=== PATIENT | female | born 1950 | race American Indian/Alaskan Native ===

== ENCOUNTER 2023-08-17 04:05 | Inpatient (IN) | payer MEDICARE, MEDICAID ==
[2023-08-17] VITALS (9 sets, daily range): BP systolic 146–197; BP diastolic 53–78; PULSE 75–104; RESP 16–26; TEMP 97.8–98.1; O2SAT 0–99
[~2023-08-17] VITALS: Ht 165.1 cm; Wt 61.2 kg
[2023-08-17] MEDS: ACCU-CHEK COMFORT CURVE STRIP VI ONE (04:27)
[2023-08-17] MEDS: DEXTROSE (50%) 50ML SYRG IV ONE (04:28)
[2023-08-17] MEDS: DEXTROSE 50% SYRINGE 50 ML IV ONE (04:28)
[2023-08-17] MEDS: DEXTROSE 10% 1,000 ML IV ONE (04:36)
[2023-08-17 05:09] LABS: Eosinophils # (auto) 0 10 ^3/uL (0-0.8); Lymphocytes # (auto) 1.2 10 ^3/uL (0.4-5.4)
[2023-08-17 05:12] LABS: Basophils # (auto) 0.1 10 ^3/uL (0-0.2); Basophils % (auto) 0.8 % (0.0-2.0); Eosinophils % (auto) 0.6 % (0.0-7.0); Hemoglobin 8.1 g/dL (12.2-16.2); Lymphocytes % (auto) 15.7 % (10.0-50.0); Mean Corpuscular Hemoglobin 28.6 pg (28.0-32.0); Mean Corpuscular Hgb Conc. 32.4 g/dL (32.0-36.0); Mean Corpuscular Volume 88.3 fL (80.0-100.0); Monocytes # (auto) 0.7 10 ^3/uL (0-1.3); Monocytes % (auto) 8.5 % (0.0-12.0); Neutrophils # (auto) 5.8 10 ^3/uL (1.6-8.6); Neutrophils % (auto) 74.4 % (37.0-80.0); Red Blood Cells 2.83 10^6/uL (4.0-5.20); Red Cell Distribution Width 14.8 % (11.8-14.3); White Blood Cell 7.7 10^3/uL (4.4-10.8)
[2023-08-17 05:24] LABS: Alanine Aminotransferase 27 U/L (7-40); Albumin 3.4 g/dL (3.2-4.8); Alkaline Phosphatase 98 U/L (46-116); Anion Gap 10 (5-15); Aspartate Aminotransferase 32 U/L (13-40); BUN/Creatinine Ratio 11.9 (10.0-20.0); Bilirubin, Total 0.2 mg/dL (0.2-1.0); Blood Urea Nitrogen 23 mg/dL (9-23); Calcium 8.4 mg/dL (8.5-10.1); Carbon Dioxide 19 mmol/L (20-30); Chloride 110 mmol/L (98-107); Glucose 115 mg/dL (74-106); Potassium 4.6 mmol/L (3.5-5.1); Sodium 139 mmol/L (136-145); Total Protein 5.4 g/dL (5.7-8.2)
[2023-08-17 05:27] LABS: Lactic Acid w/Reflex 2.9 mmol/L (0.4-2.0)
[2023-08-17] MEDS: LABETALOL HCL 5 MG/ML 4ML SYRINGE IV ONE (05:32)
[2023-08-17] MEDS: cloNIDine HCL 0.1 MG TAB PO ONE (09:13)
[2023-08-17] MEDS: CARVEDILOL 3.125 MG TAB PO ONE (09:28)
[2023-08-17] MEDS: FUROSEMIDE 20 MG TAB PO ONE (09:29)
[2023-08-17] MEDS ORDERED: DEXTROSE (50%) 50ML SYRG IV PRN (09:45)
[2023-08-17] MEDS ORDERED: DOCUSATE SOD 100 MG CAP PO PRN (09:45)
[2023-08-17] MEDS ORDERED: MORPHINE SULFATE INJ 2 MG/ml SYRG IV PRN (09:45)
[2023-08-17] MEDS ORDERED: ONDANSETRON HCL 4 MG/2 ML VIAL IV PRN (09:45)
[2023-08-17] MEDS: ACCU-CHEK COMFORT CURVE STRIP VI SCH (12:08)
[2023-08-17] MEDS: hydrALAZINE HCL 20 MG/ML VL IV PRN (12:29)
[2023-08-17 16:43] LABS: Urine Bacteria FEW /hpf (None Seen); Urine Blood Negative /uL (Negative); Urine Clarity Clear (Clear); Urine Color Colorless (Yellow); Urine Mucus FEW (None Seen); Urine Protein, UAD 3+ (Negative); Urine Urobilinogen Normal (Negative); Urine WBC 2 /hpf (0 - 5)
[2023-08-17 16:58] LABS: Creatinine, Urine 55.35 mg/dL (30.0-125.0)
[2023-08-17] MEDS ORDERED: LEVO100T8 PO (18:11)
[2023-08-17] MEDS ORDERED: NIFE1TAB31 PO (18:11)
[2023-08-17] MEDS ORDERED: OMEP1CAP70 PO (18:11)
[2023-08-17] MEDS ORDERED: FUR20T PO (18:11)
[2023-08-17] MEDS ORDERED: GLIP10TA9 (18:11)
[2023-08-17] MEDS ORDERED: CARV3.1240 PO (18:11)
[2023-08-17] MEDS ORDERED: SIMV20TA20 PO (18:11)
[2023-08-17] MEDS ORDERED: MELO15TA29 PO (18:11)
[2023-08-17] MEDS ORDERED: DOCU-265 PO (18:11)
[2023-08-17] MEDS ORDERED: ALBU0.084 NEB (20:08)
[2023-08-17] MEDS: ALBUTEROL SULF 2.5 MG/0.5ML(0.5%) NEB SOLN NEB PRN (23:14)
[2023-08-18] VITALS (14 sets, daily range): BP systolic 121–182; BP diastolic 61–85; PULSE 72–98; RESP 16–22; TEMP 97.5–98.8; O2SAT 95–100
[2023-08-18 05:28] LABS: Basophils # (auto) 0.1 10 ^3/uL (0-0.2); Basophils % (auto) 1.3 % (0.0-2.0); Eosinophils # (auto) 0.1 10 ^3/uL (0-0.8); Hemoglobin 7.7 g/dL (12.2-16.2); Lymphocytes # (auto) 1.9 10 ^3/uL (0.4-5.4); Monocytes # (auto) 0.7 10 ^3/uL (0-1.3)
[2023-08-18 05:31] LABS: Eosinophils % (auto) 1.7 % (0.0-7.0); Hematocrit 23.5 % (36.0-46.0); Lymphocytes % (auto) 28.7 % (10.0-50.0); Mean Corpuscular Hemoglobin 28.6 pg (28.0-32.0); Mean Corpuscular Hgb Conc. 32.9 g/dL (32.0-36.0); Monocytes % (auto) 10.4 % (0.0-12.0); Neutrophils # (auto) 3.9 10 ^3/uL (1.6-8.6); Neutrophils % (auto) 57.9 % (37.0-80.0); Nucleated Red Blood Cells % 0.1 %; Red Cell Distribution Width 14.8 % (11.8-14.3); White Blood Cell 6.7 10^3/uL (4.4-10.8)
[2023-08-18 05:50] LABS: Alanine Aminotransferase 19 U/L (7-40); Alkaline Phosphatase 81 U/L (46-116); Anion Gap 3 (5-15); Aspartate Aminotransferase 23 U/L (13-40); BUN/Creatinine Ratio 11.8 (10.0-20.0); Blood Urea Nitrogen 21 mg/dL (9-23); Calcium 8.2 mg/dL (8.7-10.4); Carbon Dioxide 24 mmol/L (20-30); Chloride 109 mmol/L (98-107); Glucose 148 mg/dL (74-106); Potassium 4.8 mmol/L (3.5-5.1); Sodium 136 mmol/L (136-145)
[2023-08-18 05:51] LABS: Bilirubin, Total 0.2 mg/dL (0.2-1.0); Total Protein 5.2 g/dL (5.7-8.2)
[2023-08-18] MEDS: ENOXAPARIN SOD 30 MG/0.3 ML SYRINGE SC SCH (08:27)
[2023-08-18 09:28] LABS: Triglycerides 111 mg/dL (< 150)
[2023-08-18 09:29] LABS: LDL Cholesterol 40 mg/dL (< 100)
[2023-08-18 09:30] LABS: Cholesterol 96 mg/dL (< 200); HDL Cholesterol 38 mg/dL (40-59)
[2023-08-18] MEDS: NIFEdipine ER 30 MG TAB PO SCH (10:15)
[2023-08-18] MEDS: FUROSEMIDE 20 MG TAB PO SCH (10:15)
[2023-08-18] MEDS: LEVOTHYROXINE SODIUM 100 MCG TAB PO SCH (10:16)
[2023-08-18] MEDS: CARVEDILOL 3.125 MG TAB PO SCH (10:16)
[2023-08-18] MEDS ORDERED: METF-370 PO (13:26)
[2023-08-18] MEDS ORDERED: LISI-706 PO (14:08)
[2023-08-18 14:26] LABS: % Iron Saturation 6.7 % (15-50)
[2023-08-18] MEDS: ERGOCALCIFEROL 50,000 UNIT(1.25MG) CAP PO SCH (16:38)
[2023-08-18] MEDS: hydroCHLOROthiazide 25 MG TAB PO ONE (16:45)
[2023-08-18] MEDS: FERROUS SULFATE 325mg EC TAB PO SCH (18:13)
[2023-08-18 22:10] LABS: Urine Bacteria NONE SEEN /hpf (None Seen); Urine Blood Negative /uL (Negative); Urine Clarity Clear (Clear); Urine Color Colorless (Yellow); Urine Protein, UAD 3+ (Negative); Urine Specific Gravity 1.008 (1.001-1.035); Urine Urobilinogen Normal (Negative); Urine WBC <1 /hpf (0 - 5)
[2023-08-18 22:22] LABS: Creatinine, Urine 39.41 mg/dL (30.0-125.0)
[2023-08-18 22:24] LABS: Protein, Urine 330.8 mg/dL (0.0-11.9)
[2023-08-19] VITALS (11 sets, daily range): BP systolic 135–159; BP diastolic 56–70; PULSE 79–96; RESP 16–20; TEMP 98–98.2; O2SAT 95–99
[2023-08-19] MEDS: CYANOCOBALAMIN 500 MCG TAB PO SCH (08:53)
[2023-08-19] MEDS: hydroCHLOROthiazide 25 MG TAB PO SCH (08:55)
[2023-08-19] MEDS: LISINOPRIL 20 MG TAB PO SCH (08:55)
[2023-08-19 15:35] LABS: INR 1.05 (0.9-1.15)
[2023-08-19 15:41] LABS: Free T3 2.66 pg/mL (2.3-4.2)
[2023-08-19 15:42] LABS: Free T4 (Free Thyroxine) 1.27 ng/dL (0.89-1.76)
[2023-08-19 16:38] LABS: Rapid Influenza A Negative (Negative); Rapid Influenza B Negative (Negative)
[2023-08-19 16:40] LABS: COVID19 ANTIGEN SOFIA FIA POSITIVE (NEGATIVE)
[2023-08-20] VITALS (11 sets, daily range): BP systolic 141–175; BP diastolic 54–64; PULSE 74–97; RESP 16–18; TEMP 97.8–99.1; O2SAT 95–99
[2023-08-20 05:47] LABS: Basophils # (auto) 0 10 ^3/uL (0-0.2); Basophils % (auto) 0.7 % (0.0-2.0); Eosinophils # (auto) 0.1 10 ^3/uL (0-0.8); Hemoglobin 7.6 g/dL (12.2-16.2); Monocytes # (auto) 0.5 10 ^3/uL (0-1.3); Neutrophils # (auto) 2.7 10 ^3/uL (1.6-8.6); Red Cell Distribution Width 14.6 % (11.8-14.3); White Blood Cell 5.7 10^3/uL (4.4-10.8)
[2023-08-20 05:49] LABS: Eosinophils % (auto) 1.4 % (0.0-7.0); Hematocrit 23.4 % (36.0-46.0); Lymphocytes # (auto) 2.3 10 ^3/uL (0.4-5.4); Mean Corpuscular Hemoglobin 28.2 pg (28.0-32.0); Mean Corpuscular Hgb Conc. 32.5 g/dL (32.0-36.0); Mean Corpuscular Volume 86.9 fL (80.0-100.0); Monocytes % (auto) 9.5 % (0.0-12.0); Neutrophils % (auto) 47.4 % (37.0-80.0)
[2023-08-20 06:06] LABS: Alanine Aminotransferase 32 U/L (7-40); Alkaline Phosphatase 97 U/L (46-116); Anion Gap 4 (5-15); Aspartate Aminotransferase 43 U/L (13-40); BUN/Creatinine Ratio 12.1 (10.0-20.0); Blood Urea Nitrogen 21 mg/dL (9-23); Carbon Dioxide 26 mmol/L (20-30); Chloride 109 mmol/L (98-107); Glucose 131 mg/dL (74-106); Potassium 4.6 mmol/L (3.5-5.1); Sodium 139 mmol/L (136-145)
[2023-08-20 06:07] LABS: Bilirubin, Total 0.2 mg/dL (0.2-1.0); Total Protein 5.3 g/dL (5.7-8.2)
[2023-08-20] MEDS: CARVEDILOL 3.125 MG TAB PO SCH (10:00)
[2023-08-20] MEDS: DexAMETHasone SOD PHOS 10MG/1ML VIAL INJ IV SCH (10:00)
[2023-08-20] MEDS ORDERED: DEXTROSE (50%) 50ML SYRG IV PRN (18:15)
[2023-08-20] MEDS: InsuLIN REG 1unit/0.01ml Soln (100units/ml) SC ONE (18:17)
[2023-08-20] MEDS: ACCU-CHEK COMFORT CURVE STRIP VI SCH (22:05)
[2023-08-20] MEDS: InsuLIN REG 1unit/0.01ml Soln (100units/ml) SC SCH (22:06)
[2023-08-21] VITALS (7 sets, daily range): BP systolic 137–168; BP diastolic 50–72; PULSE 80–95; RESP 16–18; TEMP 36.4; O2SAT 95–98
[2023-08-21 06:20] LABS: Basophils # (auto) 0 10 ^3/uL (0-0.2); Eosinophils # (auto) 0 10 ^3/uL (0-0.8); Monocytes # (auto) 0.5 10 ^3/uL (0-1.3); White Blood Cell 5.9 10^3/uL (4.4-10.8)
[2023-08-21 06:23] LABS: Basophils % (auto) 0.2 % (0.0-2.0); Hematocrit 22.4 % (36.0-46.0); Hemoglobin 7.4 g/dL (12.2-16.2); Lymphocytes # (auto) 1.6 10 ^3/uL (0.4-5.4); Lymphocytes % (auto) 26.3 % (10.0-50.0); Mean Corpuscular Hemoglobin 28.1 pg (28.0-32.0); Mean Corpuscular Volume 85.4 fL (80.0-100.0); Monocytes % (auto) 8.6 % (0.0-12.0); Neutrophils # (auto) 3.8 10 ^3/uL (1.6-8.6); Neutrophils % (auto) 64.9 % (37.0-80.0); Red Blood Cells 2.62 10^6/uL (4.0-5.20); Red Cell Distribution Width 14.2 % (11.8-14.3)
[2023-08-21 06:33] LABS: Alanine Aminotransferase 37 U/L (7-40); Alkaline Phosphatase 98 U/L (46-116); Anion Gap 4 (5-15); Aspartate Aminotransferase 33 U/L (13-40); BUN/Creatinine Ratio 12.9 (10.0-20.0); Blood Urea Nitrogen 22 mg/dL (9-23); Calcium 8.5 mg/dL (8.7-10.4); Carbon Dioxide 29 mmol/L (20-30); Chloride 107 mmol/L (98-107); Glucose 70 mg/dL (74-106); Potassium 4.1 mmol/L (3.5-5.1); Sodium 140 mmol/L (136-145)
[2023-08-21 06:34] LABS: Bilirubin, Total 0.2 mg/dL (0.2-1.0); Total Protein 5.4 g/dL (5.7-8.2)
[2023-08-21] MEDS ORDERED: ERGO1CAP23 PO (12:40)
[2023-08-21] MEDS ORDERED: FER325T PO ×2 (12:40→14:32)
[2023-08-21] MEDS ORDERED: AZIT-185 PO (12:40)
== END 2023-08-21 16:00 | disposition home or self-care (01) | DRG 637 ==
LOC: ER 04:05 → TELE 10:04 → TELE-WESTW 17:43 → WEST WING 08-19 00:16
PROVIDERS: ADMIT Internal Medicine; ATTEND Emergency Medicine
DX: E11.649 Type 2 diabetes mellitus with hypoglycemia without coma (principal); G93.41 Metabolic encephalopathy; U07.1 COVID-19; J12.82 Pneumonia due to coronavirus disease 2019; I24.9 Acute ischemic heart disease, unspecified; E87.21 Acute metabolic acidosis; I16.1 Hypertensive emergency; I13.0 Hypertensive heart and chronic kidney disease with heart failure and stage 1 through stage 4 chronic kidney disease, or unspecified chronic kidney disease; I50.22 Chronic systolic (congestive) heart failure; N17.0 Acute kidney failure with tubular necrosis; N18.32 Chronic kidney disease, stage 3b; D50.9 Iron deficiency anemia, unspecified; E78.5 Hyperlipidemia, unspecified; E03.9 Hypothyroidism, unspecified; E11.22 Type 2 diabetes mellitus with diabetic chronic kidney disease; R80.9 Proteinuria, unspecified; Z74.01 Bed confinement status; Z79.899 Other long term (current) drug therapy; Z83.3 Family history of diabetes mellitus; Z82.49 Family history of ischemic heart disease and other diseases of the circulatory system; Z82.62 Family history of osteoporosis
CPT/HCPCS: 36415; 70450; 71045; 76775; 80053; 80061; 81001; 82270; 82306; 82570; 82607; 82962; 83036; 83540; 83550; 83605; 83615; 83880; 84156; 84300; 84439; 84443; 84481; 84484; 85025; 85610; 85730; 87040; 87081; 87086; 87426; 87804; 93306; 94640; 96361; 96374; 96375; 99291; G0378; J1100; J1815; J3490